=== PATIENT | male | born 1995 | race Hispanic/Latino ===

== ENCOUNTER 2017-03-06 12:08 | Emergency (ER) | payer OTHER ==
[~2017-03-06] VITALS: Ht 170.2 cm; Wt 73.6 kg
[2017-03-06] MEDS ORDERED: IBUPROFEN 800 MG TAB PO ONE (12:45)
[2017-03-06] MEDS ORDERED: LIDOCAINE 1% MDV 20ML VIAL IM ONE (14:30)
[2017-03-06 16:31] VITALS: BP 118/60
--- NOTE | 2017-03-06 20:12 | REP ---
Right thumb series: Four views. History: Right thumb injury. Findings: Four views of the right thumb demonstrate normal bones, joints, and soft tissues. No evidence of fracture or subluxation seen. Impression: Negative right thumb radiographs. Signed by Maurice Lopez MD 03/07/2017 08:06 A
== END 2017-03-06 17:20 | disposition home or self-care (01) ==
LOC: M ED 12:08
DX: S66.221A Laceration of extensor muscle, fascia and tendon of right thumb at wrist and hand level, initial encounter (principal); W26.0XXA Contact with knife, initial encounter; Y92.099 Unspecified place in other non-institutional residence as the place of occurrence of the external cause; Y93.89 Activity, other specified; Y99.9 Unspecified external cause status